=== PATIENT | male | born 2000 | race Caucasian/White ===

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

== ENCOUNTER 2022-01-20 11:18 | Emergency (ER) | payer OTHER ==
--- NOTE | 2022-01-20 13:06 | XRAY Report ---
PROCEDURE: Knee 4 View LT INDICATIONS: Trauma TECHNIQUE: 4 views of the left knee(s) were acquired. COMPARISON: None FINDINGS: Bones: No fractures or dislocations. No suspicious bony lesions. Soft tissues: No joint effusion. No suspicious soft tissue calcifications. IMPRESSION: No acute radiographic abnormality. Reviewed by: Jacob Tao MD on 01/20/2022 1:04 PM PDT Approved by: Jacob Tao MD on 01/20/2022 1:04 PM PDT Station ID: [id number]
--- NOTE | 2022-01-20 13:29 | ED Physician Documentation ---
History of Present Illness - Stated complaint Stated Complaint: L KNEE INJ - Chief complaint Chief Complaint: Trauma Ext - Additonal information Additional information: 22-year-old male presents emergency department for evaluation of acute left knee pain. Reports climbing a tree for sport yesterday and one of the branches that he was on cracked and he fell out of the tree. He suspects from a height of about 8 to 10 feet. He did hit a number of branches on the way down and has some superficial abrasions on the right arm and leg. He did not strike his head or lose consciousness. But he thinks he may have awkwardly everted the knee. He has some pain on the medial side. Has been bearing weight. No swelling obvious ecchymosis. No history of previous knee injury. Review of Systems Constitutional: denies: Fever, Chills Eyes: reports: Reviewed and negative Throat: reports: Reviewed and negative Cardiac: reports: Reviewed and negative Respiratory: reports: Reviewed and negative GI: reports: Reviewed and negative Musculoskeletal: reports: Joint pain PD PAST MEDICAL HISTORY - Past Medical History Past Medical History: No - Past Surgical History Past Surgical History: Yes - Present Medications Home Medications: Ambulatory Orders Medication Instructions Recorded Confirmed No Known Home Medications 10/08/20 10/08/20 - Allergies Allergies/Adverse Reactions: Allergies Allergy/AdvReac Type Severity Reaction Status Date / Time No Known Drug Allergies Allergy Verified 01/20/22 11:36 - Social History Does the pt smoke?: No Smoking Status: Never smoker Does the pt drink ETOH?: No Does the pt have substance abuse?: No - Immunizations Immunizations are current?: Yes PD ED PE EXPANDED - General General: Alert, No acute distress - Neck Neck: Supple w/out meningeal sx, Other (C-spine cleared by Nexus criteria). No: Adenopathy - Cardiac Cardiac: Regular Rate, Radial strong equal, Pedal strong equal, Cap refill < 2 sec - Respiratory Respiratory: Clear to ausultation jordy. No: Distress, Labored - Back Back: No: Vertebral tenderness, Soft tissue tenderness - Derm Derm: Abrasion (s) (Superficial abrasions on the right leg and right arm) - Extremities Extremities: Left knee (Mild tenderness with palpation of the medial joint space. No effusion. No laxity. Normal flexion and extension. No ecchymosis. Patient is able to bear weight and has a nearly normal gait) - Neuro Neuro: Alert and Oriented X 3, CNII-XII intact - GCS Eye Opening: Spontaneous Motor: Obeys Commands Verbal: Oriented Total: 15 Results - Vitals Vitals: Vital Signs - 24 hr 01/20/22 11:33 Temperature 36.7 C Heart Rate 78 Respiratory 16 Rate Blood Pressure 135/63 H O2 Saturation 99 Oxygen O2 Source Room air - Rads (name of study) Left knee Radiology: Final report received (No acute fracture or osseous lesion or dislocation) PD MEDICAL DECISION MAKING - ED course Complexity details: reviewed results, considered differential, d/w patient ED course: Well-appearing 22-year-old male presents emergency department for evaluation of acute left knee pain after falling out of a tree yesterday. No other associated injury on exam given the fall from about 8 to 10 feet. X-ray of the knee is unremarkable. The exam of the knee is rather benign. No effusion, ecchymosis. No laxity. He has a normal gait. I suspect he has a minor contusion or sprain. He is given an Owen wrap. Discussed routine care with ibuprofen/Motrin. Emergent return precautions discussed for worsening symptoms. Departure - Departure Disposition: 01 Home, Self Care Clinical Impression: Left knee sprain Qualifiers: Encounter type: initial encounter Involved ligament of knee: medial collateral ligament Qualified Code(s): S83.412A - Sprain of medial collateral ligament of left knee, initial encounter Condition: Stable Record reviewed to determine appropriate education?: Yes Instructions: ED Sprain Knee Comments: Ignacio the x-ray of your knee is unremarkable. As we discussed the exam of your knee is also rather reassuring given your ability to walk well on it and no laxity. However I suspect they have mildly sprained the knee. Continue to use the Owen wrap when out of bed. You may benefit from icing the knee for about 10 minutes 2-3 times a day for the next few days. You can take 500 mg of Tylenol 2-3 times a day or alternate with 600 mg of Motrin taken with food again 2-3 times a day. In general with mild sprains I would expect the pain to be getting markedly better after about 7 to 10 days. If not fully improved I recommend close follow-up with primary care provider. You may benefit from physical therapy, referral to orthopedics or consideration of an MRI.
[2022-01-20 13:44] VITALS: BP 118/67
== END 2022-01-20 14:04 | disposition home or self-care (01) ==
LOC: ED 11:18
DX: S40.811A Abrasion of right upper arm, initial encounter (principal); S80.811A Abrasion, right lower leg, initial encounter; S83.412A Sprain of medial collateral ligament of left knee, initial encounter; W14.XXXA Fall from tree, initial encounter; Y93.39 Activity, other involving climbing, rappelling and jumping off; Y92.89 Other specified places as the place of occurrence of the external cause
CPT/HCPCS: 99282; 99283